=== PATIENT | male | born 1960 ===

== ENCOUNTER 2024-02-02 15:13 | Outpatient (CLI) | payer OTHER, SELFPAY ==
--- NOTE | ~2024-02-02 | CT_ITS ---
EXAMINATION: CT lung screening DATE: 02/02/2024 15:25 INDICATION: HX OF NICOTINE DEPENDENCE TECHNIQUE: Computed tomography (CT) of the chest was performed without intravenous contrast. Addition al 3D reconstructions utilizing coronal maximum intensity projection (MIP) were performed. Automated exposure control and iterative reconstruction technique were employed. The dose-length product was 22 6.77 mGy-cm. COMPARISON: None FINDINGS: 2 mm right middle lobe nodule and 3 mm subpleural nodule in the right lower lobe. There are also coup le 2 mm calcite nodules in the bilateral lower lobes consistent with old granulomatous disease. No pn eumonia, pulmonary edema or pleural effusion. Cardiomegaly. Atherosclerotic coronary artery calcific lesion. Normal caliber thoracic aorta. No pathologically enlarged thoracic lymphadenopathy. The visua lized upper abdomen is unremarkable. Severe thoracic and upper lumbar spondylosis with mild anterior wedging of a few lower thoracic vertebral bodies. IMPRESSION: 1. Lung-RADS category 2: Benign appearance or behavior. Continue annual screening with noncontrast lo w-dose chest CT in 12 months. Reviewed, dictated and finalized at location B. IMPRESSION: 1. Lung-RADS category 2: Benign appearance or behavior. Continue annual screeni ng with noncontrast low-dose chest CT in 12 months.
== END 2024-02-02 15:14 ==
LOC: MICIMG 15:14
PROVIDERS: PCP Internal Medicine; Visit Provider Internal Medicine
DX: Z12.2 Encounter for screening for malignant neoplasm of respiratory organs (principal); Z87.891 Personal history of nicotine dependence
CPT/HCPCS: 71271